=== PATIENT | male | born 1990 | race Caucasian/White ===

== ENCOUNTER 2019-05-17 10:22 | Emergency (ER) | payer SELFPAY | END 2019-05-17 14:52 | disposition home or self-care (01) | LOC: JERFT 10:22 ==

== ENCOUNTER 2019-06-08 16:12 | Emergency (ER) | payer SELFPAY ==
[2019-06-08 16:18] VITALS: BP 152/87; PULSE 61; TEMP 97.8; BMI 30.7
--- NOTE | 2019-06-08 16:20 | PDOC ---
Rapid Medical Evaluation Time Seen by Provider: 06/08/19 16:15 Medical Evaluation: Allergies Allergy/AdvReac Type Severity Reaction Status Date / Time No Known Allergies Allergy Verified 05/17/19 10:32 06/08/19 16:18 HPI: Pt here for wound check, had an pilonidal abscess?, was seen here on 05/17, given referral to the colorectal surgeon but he did not have a chance to follow up. Wound is still red. No fever/chills, no NVD. Pt will proceed to the ED for further care. Discharge Disposition - Diagnosis Wound check, abscess - Referrals - Patient Instructions - Post Discharge Activity
--- NOTE | 2019-06-08 16:47 | PDOC ---
History of Present Illness - General Chief Complaint: Wound Stated Complaint: INFECTION TO LOWER BACK Time Seen by Provider: 06/08/19 16:15 History Source: Patient - History of Present Illness Timing/Duration: other (1 month) Past History - Past Medical History Allergies/Adverse Reactions: Allergies Allergy/AdvReac Type Severity Reaction Status Date / Time No Known Allergies Allergy Verified 06/08/19 16:18 Home Medications: Ambulatory Orders Sulfamethoxazole/Trimethoprim [Bactrim Ds -] 1 tab PO BID #14 tablet 05/17/19 COPD: No - Immunization History Td Vaccination: Yes Immunization Up to Date: Yes - Suicide/Smoking/Psychosocial Hx Smoking Status: No Smoking History: Current some day smoker Number of Cigarettes Smoked Daily: 2 Information on smoking cessation initiated: No Hx Alcohol Use: Yes Drug/Substance Use Hx: Yes Review of Systems - Review of Systems Constitutional: No: Chills, Fever *Physical Exam - Vital Signs Last Vital Signs Temp Pulse Resp BP Pulse Ox 97.8 F 61 16 152/87 98 06/08/19 16:14 06/08/19 16:14 06/08/19 16:14 06/08/19 16:14 06/08/19 16:14 - Physical Exam General Appearance: Yes: Appropriately Dressed. No: Apparent Distress HEENT: positive: Normal Voice Neck: positive: Supple Respiratory/Chest: negative: Respiratory Distress Gastrointestinal/Abdominal: positive: Soft. negative: Tender Integumentary: positive: Dry, Warm, Other (small dimple like depression to gluteal cleft, no sig ttp, no induration or erythema) Neurologic: positive: Fully Oriented, Alert, Normal Mood/Affect Medical Decision Making - Medical Decision Making 06/08/19 16:42 28-year-old male diagnosed with possible pilonidal sinus on 05/17 after presenting with pain to gluteal fold. CT done to evaluate area and was negative for abscess. Patient was started on Bactrim, which he completed here with intermittent pain to site, which patient admits is mild. No swelling, discharge, fever or chills. Was given surgery follow-up on last visit, but has not done so because he has no insurance per patient see exam Pilonidal sinus No abscess currently Dc w/ OTC pain meds prn, warm soaks To return as needed Given no insurance, will refer to [facility] *DC/Admit/Observation/Transfer Diagnosis at time of Disposition: Wound check, abscess - Discharge Dispostion Disposition: HOME - Referrals - Patient Instructions Additional Instructions: Es posible que tenga marcellus afeccin llamada seno pilonidal, que es un pequeo orificio o tnel en la piel. Puede llenarse de lquido o pus y causar la formacin de un quiste o un absceso. Segn camacho examen de hoy, no hay evidencia de un absceso y camacho TAC de hace 2 semanas fue negativo para eso. [place] Motrin o Tylenol para el dolor y aplique compresas calientes al sitio con frecuencia sofia todo el da. Shannan un seguimiento en [facility] al [phone] - Post Discharge Activity
== END 2019-06-08 17:16 | disposition home or self-care (01) ==
LOC: JERFT 16:12
DX: Z48.00 Encounter for change or removal of nonsurgical wound dressing (principal); F17.210 Nicotine dependence, cigarettes, uncomplicated
CPT/HCPCS: 99281-25

== ENCOUNTER 2019-06-22 01:50 | Emergency (ER) | payer SELFPAY ==
[2019-06-22 01:58] VITALS: BP 145/84; PULSE 89; TEMP 98.8; BMI 30.7
--- NOTE | 2019-06-22 01:59 | PDOC ---
History of Present Illness - General Chief Complaint: Pain, Acute Stated Complaint: INFECTION/PAIN TO LOWER BACK AND LEFT SHOULDER X 3 Time Seen by Provider: 06/22/19 01:59 History Source: Patient Exam Limitations: No Limitations - History of Present Illness Initial Comments: 06/22/19 02:18 This is a 29-year-old male who comes in complaining of a growth on his left anterior chest wall area as well as a pilonidal sinus that is draining, infected fluid. Patient was seen at [facility] approximately 2 weeks ago and hasn't been able to follow-up with a primary care doctor or surgery. Patient denies any fevers or chills. She said that he was given an incomplete phone number and was unable to follow-up. Allergies: as per nursing notes Past Medical History: none Social history: Lives with family. No smoking. No alcohol. No illicit drugs. Surgical history: None General: No fevers or chills, no weakness, no weight loss HEENT: No change in vision. No sore throat,. No ear pain CardioVascular: no chest discomfort. No shortness of breath Respiratory:No cough, or wheezing. Gastrointestinal: no nausea, vomiting, diarrhea or constipation, No rectal bleeding Genitourinary: No dysuria, hematuria, or frequency Musculoskeletal: No joint or muscle pain or swelling Neurologic: No headache, vertigo, dizziness or loss of consciousness Psychiatric: nor depression Skin: No rashes or easy bruising Endocrine: no increased thirst or abnormal weight change Allergic: no skin or latex allergy All other systems reviewed and normal GENERAL: The patient is awake, alert, and fully oriented, in no acute distress. HEAD: Normal with no signs of trauma. CHEST WALL: There is a large lipoma of the upper anterior chest wall but left. There is no erythema or ecchymosis. However the lipoma is approximately 3 x 3 cm diameter. BACK: There is some tenderness and palpation over the lower sacral spine area. There is no tenderness on palpation over the sciatic notch. There is a pilonidal sinus with no erythema or drainage at this time. EYES: Pupils equal, round and reactive to light, extraocular movements intact, sclera anicteric, conjunctiva clear. EXTREMITIES:atraumatic, Normal range of motion, no edema. NEUROLOGICAL: Normal speech, normal gait. PSYCH: Normal mood, normal affect. SKIN: Warm, Dry, normal turgor, no rashes or lesions noted. Patient given Toradol for the low back pain and a prescription for naproxen was sent to his pharmacy. Patient also given a complete phone number for [facility]. Patient discharged will follow-up with [facility]. Past History - Past Medical History Allergies/Adverse Reactions: Allergies Allergy/AdvReac Type Severity Reaction Status Date / Time No Known Allergies Allergy Verified 06/22/19 01:52 Home Medications: Ambulatory Orders Naproxen 500 mg PO BID #60 tablet 06/22/19 COPD: No - Immunization History Td Vaccination: Yes Immunization Up to Date: Yes - Suicide/Smoking/Psychosocial Hx Smoking Status: No Smoking History: Current every day smoker Have you smoked in the past 12 months: Yes Number of Cigarettes Smoked Daily: 1 Information on smoking cessation initiated: No Hx Alcohol Use: Yes Drug/Substance Use Hx: Yes (MARIJUANA) *Physical Exam - Vital Signs Last Vital Signs Temp Pulse Resp BP Pulse Ox 98.8 F 89 80 H 145/84 98 06/22/19 01:53 06/22/19 01:53 06/22/19 01:53 06/22/19 01:53 06/22/19 01:53 *DC/Admit/Observation/Transfer Diagnosis at time of Disposition: Pilonidal sinus, Lipoma of chest wall - Discharge Dispostion Disposition: HOME Condition at time of disposition: Stable Decision to Admit order: No - Prescriptions Prescriptions: Naproxen 500 mg PO BID #60 tablet - Referrals - Patient Instructions Additional Instructions: It is very important that you follow-up with [facility]. Call them at [phone]/ Return to the emergency department immediately with ANY new, persistent or worsening symptoms. Continue any medications as previously prescribed by your physician. You should follow up with your primary doctor as soon as possible regarding today's emergency department visit. . Please make sure your doctor reviews the results of your emergency evaluation. Thank you for coming to the Emergency Department today for your care. It was a pleasure to see you today. Please note that your evaluation is INCOMPLETE until you follow-up with your doctor. Es muy importante que realice un seguimiento con la atencin mdica del [facility]. [place] al [phone] Regrese al departamento de emergencias inmediatamente con CUALQUIER sntoma nuevo, persistente o que empeore. Contine con los medicamentos recetados previamente por camacho mdico. Debe hacer un seguimiento con camacho mdico de atencin primaria lo antes posible con respecto a la visita al departamento de emergencias de rk. . Asegrese de que camacho mdico revise los resultados de camacho evaluacin de emergencia. Martin por venir rk al Departamento de emergencias por camacho atencin. Fue un placer verte rk. Tenga en cuenta que camacho evaluacin es INCOMPLETA hasta que tashi un seguimiento con camacho mdico. - Post Discharge Activity
[2019-06-22] MEDS ORDERED: KETOROLAC TROMETHAMINE 60 MG/2 ML VIAL ONE (02:10)
[2019-06-22] MEDS ORDERED: KETOROLAC TROMETHAMINE 60 MG/2 ML VIAL IM ONE (02:10)
== END 2019-06-22 02:20 | disposition home or self-care (01) ==
LOC: FER 01:50
PROC: 3E0233Z Introduction of Anti-inflammatory into Muscle, Percutaneous Approach (ICD-10-PCS; principal; 2019-06-22)
DX: L05.92 Pilonidal sinus without abscess (principal); D17.1 Benign lipomatous neoplasm of skin and subcutaneous tissue of trunk; F17.210 Nicotine dependence, cigarettes, uncomplicated
CPT/HCPCS: 99281-25

== ENCOUNTER 2019-10-02 18:31 | Emergency (ER) | payer SELFPAY ==
[2019-10-02 18:42] VITALS: BP 150/64; PULSE 73; TEMP 98; BMI 30.9
--- NOTE | 2019-10-02 19:44 | PDOC ---
History of Present Illness - General Chief Complaint: Abscess Boil Stated Complaint: BOIL ON THE BACK Time Seen by Provider: 10/02/19 19:41 History Source: Patient - History of Present Illness Initial Comments: 10/02/19 20:38 Chief complaint: Pilonidal cyst, pain Patient is 29-year-old male with history of this prior, has not had it opened in a while who states he has had a problem with it for 5 months, he does not have insurance and is a problems following up with the surgeon. Patient has no fever but has pain in the area and there is swelling. Patient also has a lipoma that was previously diagnosed on his chest which she has not been able to follow-up on either. GENERAL/CONSTITUTIONAL: No fever, weakness. dizziness HEAD, EYES, EARS, NOSE AND THROAT: No change in vision. No ear pain or discharge. No sore throat. CARDIOVASCULAR: No chest pain RESPIRATORY: No shortness of breath or cough GASTROINTESTINAL: No pain, nausea, vomiting, diarrhea or constipation GENITOURINARY: No dysuria MUSCULOSKELETAL: No neck or back pain SKIN: No rash, pilonidal NEUROLOGIC: No headache, vertigo, loss of consciousness, or loss of sensation. GENERAL: The patient is awake, alert, and fully oriented, in no acute distress. HEAD: Normal with no signs of trauma. EYES: Pupils equal, round and reactive to light, sclera anicteric, conjunctiva clear. ENT: pharynx: no erythema, no exudate, uvula midline NECK: supple CHEST: clear, nontender, rr ABD: soft, nontender BACK: + Mild swelling and tenderness just superior of the right gluteal cleft, no signs of cellulitis EXTREMITIES: Normal range of motion, no edema. NEUROLOGICAL: Normal speech, normal gait. SKIN: Warm, Dry Past History - Past Medical History Allergies/Adverse Reactions: Allergies Allergy/AdvReac Type Severity Reaction Status Date / Time No Known Allergies Allergy Verified 10/02/19 18:42 Home Medications: Ambulatory Orders Naproxen 500 mg PO BID #60 tablet 06/22/19 Cephalexin Monohydrate [Keflex -] 500 mg PO Q6H #28 capsule 10/02/19 Sulfamethoxazole/Trimethoprim [Bactrim Ds -] 1 tab PO BID #14 tablet 10/02/19 COPD: No - Immunization History Td Vaccination: Yes Immunization Up to Date: Yes - Psycho Social/Smoking Cessation Hx Smoking Status: No Smoking History: Current every day smoker Have you smoked in the past 12 months: Yes Number of Cigarettes Smoked Daily: 2 Information on smoking cessation initiated: No 'Breaking Loose' booklet given: 06/22/19 Hx Alcohol Use: Yes Drug/Substance Use Hx: Yes (MARIJUANA) *Physical Exam - Vital Signs Last Vital Signs Temp Pulse Resp BP Pulse Ox 98 F 73 18 150/64 99 10/02/19 18:39 10/02/19 18:39 10/02/19 18:39 10/02/19 18:39 10/02/19 18:39 Procedures - Incision and Drainage I&D Site: Left: Other (Pilonidal) Betadine cleansed: Yes Anesthesia: 2% Lidocaine Blade Size: 11 Attempts: 1 Iodinated Packin/ in Complications: none Medical Decision Making - Medical Decision Making 10/02/19 20:40 29-year-old male with history of pilonidal cyst, with ongoing pain, states this is not gotten better in the last 5 months coming have difficulty following up with the surgeon. Patient has area that can be incised and drained Incision and drainage done, mostly sanguinous fluid, no collection of pus. But will put on antibiotics given length of symptoms and problems following up. It was further explained again how he needs to follow-up with the surgeon and otherwise this will never get better Discussed issues, findings, results, applicable medications and treatments and follow-up. All these were understood and all questions were answered Discharge - Discharge Information Problems reviewed: Yes Clinical Impression/Diagnosis: Pilonidal abscess Condition: Stable Disposition: HOME - Admission No - Additional Discharge Information Prescriptions: Cephalexin Monohydrate [Keflex -] 500 mg PO Q6H #28 capsule Sulfamethoxazole/Trimethoprim [Bactrim Ds -] 1 tab PO BID #14 tablet - Follow up/Referral Referrals: Sanjeev Flores MD [Staff Physician] - - Patient Discharge Instructions Patient Printed Discharge Instructions: DI for Pilonidal Cyst Drainage and Removal Additional Instructions: Leave packing in place, you may shower but be careful not to have the packing come out. Take the Bactrim and the Keflex, both twice a day until finished Change bandage as needed Return in 2 days to have packing removed and have reevaluation Return sooner if fever or feeling sicker It is very important for you to follow-up with the surgeon the name of the surgeon was listed here or you can follow-up with any surgeon, if you do not have insurance you may have to pay to see the surgeon but is very important that you get proper treatment of this. You can try to see if they have any financial programs at [facility] or [facility]. But you should see a surgeon this week after the packing is taken out for further treatment Deje el empaque en camacho lugar, puede baarse, joshua tenga cuidado de que no se salga el empaque. Nunda el Bactrim y el Keflex, ambos dos veces al da hasta que termine Cambie el vendaje segn sea necesario. Regrese en 2 quintanilla para retirar el embalaje y reevaluarlo Regrese antes si tiene fiebre o se siente ms enfermo Es muy importante que tashi un seguimiento con el cirujano. El nombre del cirujano figuraba aqu o puede hacerlo con cualquier cirujano. Si no tiene seguro, es posible que deba pagar para roger al cirujano, joshua es muy importante. que recibes un tratamiento adecuado de esto. Puede intentar roger si tienen algn programa financiero en [facility] o [facility]. Joshua debera roger a un cirujano esta semana despus de que se retire el empaque para un tratamiento adicional Print Language: GREENLANDIC - Post Discharge Activity
== END 2019-10-02 20:52 | disposition home or self-care (01) ==
LOC: JERFT 18:31
PROC: 0J990ZZ Drainage of Buttock Subcutaneous Tissue and Fascia, Open Approach (ICD-10-PCS; principal; 2019-10-02)
DX: L05.01 Pilonidal cyst with abscess (principal); D17.1 Benign lipomatous neoplasm of skin and subcutaneous tissue of trunk
CPT/HCPCS: 99281-25

== ENCOUNTER 2019-10-04 12:34 | Emergency (ER) | payer SELFPAY ==
[2019-10-04 12:42] VITALS: BP 132/62; PULSE 88; TEMP 98; BMI 30.9
--- NOTE | 2019-10-04 13:02 | PDOC ---
Suture Removal/Wound Check HPI - History of Present Illness Chief Complaint: Abscess Boil Stated Complaint: BOIL ON BACK Time Seen by Provider: 10/04/19 12:45 History Source: Yes: Patient Treated at: [facility] Date of Last ED visit: 10/02/19 - Previous ED Treatment Type of procedure performed on last visit: Yes: I&D of Abscess Tetanus Immunization: Yes: Up to Date Past History - Past Medical History Allergies/Adverse Reactions: Allergies Allergy/AdvReac Type Severity Reaction Status Date / Time No Known Allergies Allergy Verified 10/04/19 12:42 Home Medications: Ambulatory Orders Naproxen 500 mg PO BID #60 tablet 06/22/19 Cephalexin Monohydrate [Keflex -] 500 mg PO Q6H #28 capsule 10/02/19 Sulfamethoxazole/Trimethoprim [Bactrim Ds -] 1 tab PO BID #14 tablet 10/02/19 COPD: No - Immunization History Td Vaccination: Yes Immunization Up to Date: Yes - Psycho Social/Smoking Cessation Hx Smoking Status: No Smoking History: Never smoked Have you smoked in the past 12 months: Yes Number of Cigarettes Smoked Daily: 2 'Breaking Loose' booklet given: 06/22/19 Hx Alcohol Use: Yes Drug/Substance Use Hx: Yes (MARIJUANA) *Review of Systems - Review of Systems Constitutional: No: Fever *Physical Exam - Vital Signs Last Vital Signs Temp Pulse Resp BP Pulse Ox 98 F 88 18 132/62 98 10/04/19 12:39 10/04/19 12:39 10/04/19 12:39 10/04/19 12:39 10/04/19 12:39 Medical Decision Making - Medical Decision Making 10/04/19 13:04 29-year-old male, history of recurrent pilonidal abscesses s/p I&D of pilonidal abscess 2 days ago in the ER, had packing placed and currently taking Keflex and Bactrim, here for wound check. States pain is improving and no surrounding redness fever or chills. see exam Wound check Abscess healing well, no e/o re-accumulation Packing removed today, no need for replacement Dc to cont abx To f/u w/ surgeon Discharge - Discharge Information Problems reviewed: Yes Clinical Impression/Diagnosis: Wound check, abscess Condition: Good Disposition: HOME - Follow up/Referral Referrals: Bart Landeros MD [Staff Physician] - - Patient Discharge Instructions Additional Instructions: Camarena herida parece estar sanando teo. Contine con los antibiticos segn las indicaciones y tome Motrin o Tylenol para el dolor. Mantenga la herida cubierta hasta que la herida comience a formar costras Regrese a la pete de emergencias solo si los sntomas empeoran Y tashi un seguimiento con ciruga general para el manejo de camarena quiste pilonidal - Post Discharge Activity
== END 2019-10-04 13:14 | disposition home or self-care (01) ==
LOC: JERFT 12:34
DX: Z48.817 Encounter for surgical aftercare following surgery on the skin and subcutaneous tissue (principal); Z48.01 Encounter for change or removal of surgical wound dressing
CPT/HCPCS: 99282-25

== ENCOUNTER 2020-12-09 15:44 | Emergency (ER) | payer OTHER ==
[2020-12-09 16:02] VITALS: BP 167/99; PULSE 98; TEMP 98.6; BMI 36.4
[2020-12-09] MEDS ORDERED: ACETAMINOPHEN 500 MG TABLET (FP) PO ONE (16:05)
[2020-12-09] MEDS ORDERED: ACETAMINOPHEN 1000 MG/100 ML VIAL (NON FORMULARY) IVPB ONE (16:24)
[2020-12-09] MEDS ORDERED: ACETAMINOPHEN INJECTION 100 ML IVPB ONE (16:24)
[2020-12-09 16:57] LABS: MEAN PLT VOLUME 7.2 fl (7.5-11.1); WHITE BLOOD COUNT 11.8 K/mm3 (4.0-10.8)
[2020-12-09 17:01] LABS: BASO % 1.1 % (0-2.0); EOS % 1.1 % (0-4.5); HEMATOCRIT 43.3 % (35.4-49); HEMOGLOBIN 14.9 GM/dl (11.7-16.9); LYMPH % 19.3 % (8-40); MCHC 34.3 g/dl (32.0-35.9); MEAN CELL VOLUME 87.4 fl (80-96); MONO % 6.8 % (3.8-10.2); NEUT % 71.7 % (42.8-82.8); PLATELET COUNT 259 K/MM3 (134-434); RBC 4.96 M/mm3 (4.00-5.60); RDW 11.7 % (11.9-15.9)
[2020-12-09 17:04] LABS: INR 1.28 (0.82-1.09); PROTHROMBIN TIME (PATIENT) 14.1 SEC (10.2-13.0)
[2020-12-09 17:05] LABS: ALBUMIN 4.8 g/dl (3.4-5.0); BILIRUBIN,TOTAL 1.4 mg/dl (0.2-1); CALCIUM 9.6 mg/dl (8.5-10); CREATININE 0.9 mg/dl (0.55-1.3); POTASSIUM 4.1 mmol/L (3.5-5.1); TOT PROT 7.2 g/dl (6.4-8.2)
[2020-12-09] MEDS ORDERED: LIDOCAINE 2%/EPINEPHRINE 1:100000 (50 ML MD VIAL) INF ONE (18:35)
[2020-12-09] MEDS ORDERED: LIDO 2%/EPI 1:200000 PRESRVFRE (20 ML SDVIAL) ONE (18:36)
== END 2020-12-09 19:22 | disposition home or self-care (01) ==
LOC: FER 15:44
PROC: 3E033NZ Introduction of Analgesics, Hypnotics, Sedatives into Peripheral Vein, Percutaneous Approach (ICD-10-PCS; principal; 2020-12-09)
DX: L05.01 Pilonidal cyst with abscess (principal)
CPT/HCPCS: 36415; 71046-TC-FY; 74177-TC; 80053; 85025; 85610; 86850; 86900; 86901; 99285-25; C9803; J0131; Q9967; U0003